=== PATIENT | female | born 1945 | race Caucasian/White ===

== ENCOUNTER 2017-06-29 14:13 | Emergency (ER) | payer MEDICARE, OTHER ==
[~2017-06-29] VITALS: Ht 162.6 cm; Wt 86.2 kg
[~2017-06-29 14:13] MED LIST: ASPI81EC PO; ATEN100 PO; ATEN50 PO; Ativan1 MG PO; CLARITIN5 MG PO; CYCL10 PO; FISH1000 PO; FLUT110OIA INH; HYDCHL25 PO; IBUP400 PO; IPRA.03NI; LEVSOD100 PO; LEVSOD50 PO; LOSA50 PO; MULVITMINF PO; OMEP20ER PO; OXYACE5T PO; POTA10T PO; POTA20PAC PO; QUET25 PO; UBID100 PO
[2017-06-29 14:37] LABS: BASOPHILS ABSOLUTE AUTO 0.06 K/mm3 (0.00-0.23); BASOPHILS PERCENT AUTO 1 % (0-2); EOSINOPHILS ABSOLUTE AUTO 0.09 K/mm3 (0.00-0.68); EOSINOPHILS PERCENT AUTO 1 % (0-6); Hematocrit 45.4 % (33.0-51.0); Hemoglobin 15.1 g/dL (11.5-16.0); IMMATURE GRAN ABSOLUTE AUTO 0.05 K/mm3 (0.00-0.10); IMMATURE GRAN PERCENT AUTO 1 % (0-1); LYMPHOCYTES ABSOLUTE AUTO 3.23 K/mm3 (0.84-5.20); LYMPHOCYTES PERCENT AUTO 39 % (21-46); MONOCYTES ABSOLUTE AUTO 1.01 K/mm3 (0.16-1.47); MONOCYTES PERCENT AUTO 12 % (4-13); Mean Corpuscular HGB 29.8 pg (26.0-34.0); Mean Corpuscular HGB Conc 33.3 g/dL (31.5-36.5); Mean Corpuscular Volume 90 fL (80-100); Mean Platelet Volume 10.3 fL (9.1-12.4); NEUTROPHILS PERCENT AUTO 46 % (41-73); Platelet Count 259 K/mm3 (150-400); RDW Standard Deviation 42.5 fL (35.1-46.3); Red Blood Cell Count 5.06 M/mm3 (3.80-5.20); White Blood Cell Count 8.24 K/mm3 (4.00-11.30)
[2017-06-29 14:57] LABS: Alanine Aminotransfer (ALT/SGP 48 U/L (12-78); Albumin, Blood 4.3 g/dL (3.4-5.0); Alk Phos 74 U/L (50-136); Anion Gap 12 mmol/L (6-16); Aspartate Aminotrans (AST/SGOT 38 U/L (12-37); Bilirubin, Total 0.6 mg/dL (0.1-1.0); Blood Urea Nitrogen 20 mg/dL (8-24); Bun/Creatinine Ratio 23.8 (12.0-20.0); CO2, Blood 24 mmol/L (21-32); Calcium, Blood 9.3 mg/dL (8.5-10.1); Chloride, Blood 103 mmol/L (98-108); Creatinine, Blood 0.84 mg/dL (0.40-1.00); Globulin, Blood 4.1 g/dL (2.2-4.0); Glomerular Filtration Rate >60 (60-); Glucose, Blood 177 mg/dL (70-99); Potassium, Blood 3.4 mmol/L (3.5-5.5); Sodium, Blood 139 mmol/L (136-145); Total Protein, Blood 8.4 g/dL (6.4-8.2); Troponin I <0.015 ng/mL (0.000-0.040)
== END 2017-06-29 18:00 | disposition home or self-care (01) ==
LOC: ER 14:13
PROVIDERS: Physician Assistant
DX: R07.89 Other chest pain (principal); F41.9 Anxiety disorder, unspecified; R25.2 Cramp and spasm; E87.6 Hypokalemia; R00.0 Tachycardia, unspecified; Z88.8 Allergy status to other drugs, medicaments and biological substances; Z88.2 Allergy status to sulfonamides; Z88.5 Allergy status to narcotic agent; Z79.899 Other long term (current) drug therapy; I10 Essential (primary) hypertension; E78.00 Pure hypercholesterolemia, unspecified; I50.9 Heart failure, unspecified
CPT/HCPCS: 36415; 71046; 80053; 84484; 85025; 93005; 93010; 96361; 96374; 99284; J2060; J7030

== ENCOUNTER 2018-10-20 08:24 | Day surgery (SDC) | payer MEDICARE, OTHER ==
[~2018-10-20] VITALS: Ht 162.6 cm; Wt 83.4 kg
[2018-10-20] MEDS ORDERED: Aspirin EC81 MG PO (09:29)
[2018-10-20] MEDS ORDERED: IBUP800 PO (09:30)
[2018-10-20] MEDS ORDERED: Lipitor80 MG PO (09:30)
[2018-10-20] MEDS ORDERED: Amaryl1 MG PO (09:32)
[2018-10-20] MEDS ORDERED: HYDR10 PO (09:33)
[2018-10-20] MEDS ORDERED: DULO60 PO (09:33)
[2018-10-20] MEDS ORDERED: Allopurinol100 MG PO (09:34)
--- NOTE | 2018-10-20 11:16 | NUR ---
10/20/18 1116 Nakia Stevenson AWAKE TAKING SIPS OF WATER, PUT HER TEETH, THEN MORE SLEEPY, NO VERBAL RESPONSE AND SHAKING OF BOTH ARMS, CBG DONE AT 102. INTERMITTENT GENERALIZED SHAKING OF BOTH ARMS AND LEFT FOOT. NO VERBAL RESPONSE. BEAR HUGGER APPLIED.
== END 2018-10-20 11:51 | disposition home or self-care (01) ==
LOC: ORSCSDS 08:24
PROVIDERS: Podiatrist Foot & Ankle Surgery
PROC: 0YBM0ZX Excision of Right Foot, Open Approach, Diagnostic (ICD-10-PCS; principal; 2018-10-20 10:15)
DX: M19.071 Primary osteoarthritis, right ankle and foot (principal); I10 Essential (primary) hypertension; E11.9 Type 2 diabetes mellitus without complications; E03.9 Hypothyroidism, unspecified; I25.2 Old myocardial infarction; I25.10 Atherosclerotic heart disease of native coronary artery without angina pectoris; Z87.891 Personal history of nicotine dependence; Z79.899 Other long term (current) drug therapy; Z79.82 Long term (current) use of aspirin
CPT/HCPCS: 82947; J0690; J2250; J2704; J3010; J7120

== ENCOUNTER 2020-06-23 11:06 | Inpatient (IN) | payer MEDICARE, OTHER ==
[~2020-06-23] VITALS: Ht 162.6 cm; Wt 86.4 kg
[~2020-06-23 11:06] MED LIST changes: -CELE100 PO
--- NOTE | 2020-06-23 17:45 | NUR ---
SHIFT SUMMARY PT A&OX4, VSS, NPO MIDNIGHT, CONNOR SMALL AMT CLEAR LIQUIDS, DENIES N&V AT THIS TIME, 20G IV LUE, IVF @ 75MLS/HR W/ ABX SCHEDULED, INDEPENDENT TO BRP, VOIDING WELL, SURGICAL CONSULT COMPLETE/ DR FONTANEZ PLAN FOR O.R. MID-AM TOMORROW, COVID TEST DONE. WILL REPORT TO ONCOMING NOC RN.
[2020-06-23 19:02] LABS: Influenza A, PCR NEGATIVE (NEGATIVE); Influenza B, PCR NEGATIVE (NEGATIVE); Resp Syncytial Virus, PCR NEGATIVE (NEGATIVE); SARS-Cov-2 (COVID-19) PCR, MMC NEGATIVE (NEGATIVE)
--- NOTE | 2020-06-24 04:36 | NUR ---
SHIFT SUMMARY: PT HAS BEEN NPO SINCE MIDNIGHT FOR SURGERY TODAY. PT C/O A CONSTANT PAIN TO RT SIDE OF ABD. PAIN BEING MANAGED WITH 1-2MG MORPHINE PER EMAR. DENIES N/V. IVF AND IV ABX INFUSING. PT INDEPENDENT IN ROOM. VOIDING WELL. PT CURRENTLY APPEARS TO BE RESTING.
[2020-06-24 05:27] LABS: BASOPHILS ABSOLUTE AUTO 0.03 K/mm3 (0.00-0.23); BASOPHILS PERCENT AUTO 0 % (0-2); EOSINOPHILS ABSOLUTE AUTO 0.08 K/mm3 (0.00-0.68); EOSINOPHILS PERCENT AUTO 1 % (0-6); Hematocrit 34.3 % (33.0-51.0); Hemoglobin 11.1 g/dL (11.5-16.0); IMMATURE GRAN ABSOLUTE AUTO 0.02 K/mm3 (0.00-0.10); IMMATURE GRAN PERCENT AUTO 0 % (0-1); LYMPHOCYTES ABSOLUTE AUTO 1.21 K/mm3 (0.84-5.20); LYMPHOCYTES PERCENT AUTO 16 % (21-46); MONOCYTES ABSOLUTE AUTO 1.28 K/mm3 (0.16-1.47); MONOCYTES PERCENT AUTO 17 % (4-13); Mean Corpuscular HGB 29.8 pg (26.0-34.0); Mean Corpuscular HGB Conc 32.4 g/dL (31.5-36.5); Mean Corpuscular Volume 92 fL (80-100); Mean Platelet Volume 10.1 fL (9.1-12.4); NEUTROPHILS ABSOLUTE AUTO 5.01 K/mm3 (1.96-9.15); NEUTROPHILS PERCENT AUTO 66 % (41-73); Platelet Count 175 K/mm3 (150-400); RDW Coefficient Variation 14.1 % (11.7-14.2); RDW Standard Deviation 46.9 fL (35.1-46.3); Red Blood Cell Count 3.73 M/mm3 (3.80-5.20); White Blood Cell Count 7.63 K/mm3 (4.00-11.30)
[2020-06-24 05:47] LABS: Alanine Aminotransfer (ALT/SGP 71 U/L (12-78); Albumin/Globulin Ratio 0.8 (0.8-1.8); Alk Phos 119 U/L (50-136); Anion Gap 4 mmol/L (6-16); Aspartate Aminotrans (AST/SGOT 113 U/L (12-37); Bilirubin, Total 1.4 mg/dL (0.1-1.0); Blood Urea Nitrogen 15 mg/dL (8-24); Bun/Creatinine Ratio 19.4 (12.0-20.0); CO2, Blood 29 mmol/L (21-32); Calcium, Blood 9.1 mg/dL (8.5-10.1); Chloride, Blood 102 mmol/L (98-108); Creatinine, Blood 0.77 mg/dL (0.40-1.00); Globulin, Blood 3.7 g/dL (2.2-4.0); Glomerular Filtration Rate >60 (60-); Glucose, Blood 193 mg/dL (70-99); Magnesium, Blood 2.1 mg/dL (1.6-2.4); Phosphorus, Blood 2.5 mg/dL (2.5-4.9); Potassium, Blood 3.7 mmol/L (3.5-5.5); Sodium, Blood 135 mmol/L (136-145); Total Protein, Blood 6.7 g/dL (6.4-8.2)
--- NOTE | 2020-06-24 14:43 | NUR ---
Patient up to Ambulate independently. Gait steady. Surgical site prepped with 2% Chlorhexidine cloth wipe. History, Chart, Medications and Allergies reviewed before start of procedure.Lungs clear T/O to Auscultation. Patient confirms NPO status and agrees with scheduled surgery. ALL BELONINGS EXCEPT GLASSES LEFT IN ROOM 222. REPORT FROM RICHARD MOORE.
--- NOTE | 2020-06-24 18:37 | NUR ---
SHIFT SUMMARY PT A&OX4, VSS, S/P HALLE HUNT([id number]), STERIS D/I. DENIES PAIN AT THIS TIME. DENIES N&V, CONNOR PO CLEAR LIQUID. IVF & ABX INFUSING PER EMAR. AWAITING POST OP VOID. STAND PIVOT FROM GURNEY TO BED. WILL REPORT TO ONCOMING NOC JAM.
--- NOTE | 2020-06-24 19:21 | NUR ---
ADMIT:06/23/20 DISCHARGE: DX: cholecystitis CC: judsonabamor MICHELLE CALL: RESIDENCE: home, with CAREGIVER: Scotta: CANDELARIA TYLER ([place]) DX: anemia, arthritis cervical, chronic pain, htn, anxiety, depression, see list DME: compression stockings CCM: referral 04/30/20 HOME HEALTH: no record SUMMARY: Admit 06/23/20 06/24/20 - Met with patient in her room, updated white board with my name and discussed care coordination. Told her I would follow up after surgery. Lap susie to be performed by DR Rick today Per Dr Anglin , ETA discharge Tuesday, states she may need respite care, she cares for her chronically ill at home. Not sure if she needs the care or needs the care. Will meet with patient in the morning. 1: Acute cholecystitis
[2020-06-25 04:29] LABS: BASOPHILS ABSOLUTE AUTO 0.02 K/mm3 (0.00-0.23); BASOPHILS PERCENT AUTO 0 % (0-2); EOSINOPHILS PERCENT AUTO 0 % (0-6); Hematocrit 30.5 % (33.0-51.0); Hemoglobin 9.8 g/dL (11.5-16.0); IMMATURE GRAN ABSOLUTE AUTO 0.03 K/mm3 (0.00-0.10); IMMATURE GRAN PERCENT AUTO 0 % (0-1); LYMPHOCYTES ABSOLUTE AUTO 0.56 K/mm3 (0.84-5.20); LYMPHOCYTES PERCENT AUTO 7 % (21-46); MONOCYTES ABSOLUTE AUTO 0.71 K/mm3 (0.16-1.47); MONOCYTES PERCENT AUTO 9 % (4-13); Mean Corpuscular HGB 29.4 pg (26.0-34.0); Mean Corpuscular HGB Conc 32.1 g/dL (31.5-36.5); Mean Corpuscular Volume 92 fL (80-100); Mean Platelet Volume 10.8 fL (9.1-12.4); NEUTROPHILS ABSOLUTE AUTO 6.71 K/mm3 (1.96-9.15); NEUTROPHILS PERCENT AUTO 84 % (41-73); Platelet Count 176 K/mm3 (150-400); RDW Coefficient Variation 13.7 % (11.7-14.2); RDW Standard Deviation 46.5 fL (35.1-46.3); Red Blood Cell Count 3.33 M/mm3 (3.80-5.20); White Blood Cell Count 8.03 K/mm3 (4.00-11.30)
[2020-06-25 04:47] LABS: Alanine Aminotransfer (ALT/SGP 129 U/L (12-78); Albumin, Blood 2.5 g/dL (3.4-5.0); Albumin/Globulin Ratio 0.7 (0.8-1.8); Alk Phos 145 U/L (50-136); Anion Gap 6 mmol/L (6-16); Aspartate Aminotrans (AST/SGOT 154 U/L (12-37); Bilirubin, Total 0.6 mg/dL (0.1-1.0); Blood Urea Nitrogen 16 mg/dL (8-24); Bun/Creatinine Ratio 16.9 (12.0-20.0); CO2, Blood 28 mmol/L (21-32); Calcium, Blood 8.5 mg/dL (8.5-10.1); Chloride, Blood 100 mmol/L (98-108); Creatinine, Blood 0.94 mg/dL (0.40-1.00); Globulin, Blood 3.5 g/dL (2.2-4.0); Glomerular Filtration Rate >60 (60-); Glucose, Blood 297 mg/dL (70-99); Potassium, Blood 4.4 mmol/L (3.5-5.5); Sodium, Blood 134 mmol/L (136-145)
--- NOTE | 2020-06-25 05:06 | NUR ---
SHIFT SUMMARY POD1 LAP MAGALIE, A/O X4, VSS, TOLERATING PO, VOIDING WELL, PAIN MANAGED PER EMAR, NO BM THIS SHIFT, NO ACUTE EVENTS THIS SHIFT. CALL LIGHT IN REACH, WILL CONTINUE TO MONITOR AND REPORT TO ONCOMING DAY RN.
[2020-06-25] MEDS ORDERED: CELE100 PO (08:59)
--- NOTE | 2020-06-25 14:35 | NUR ---
DISCHARGE PT PROVIDED WITH WRITTEN AND VERBAL DISCHARGE INSTRUCTIONS, SHE REPORTED UNDERSTANDING. QUESTIONS ANSWERED. PT SHORT OF BREATH WITH ACTIVITY, SHE REPORTS THIS IS BASELINE X3 MONTHS AND IS SEEING DR. BRINK REGARDING THIS CHANGE. PAIN MANAGED AT TIME OF DISCHARE. PT TOLERATING PO AND PAIN MANAGED WITH PO PAIN MEDICATION. PT ABLE TO AMBULATE INDEPEDENTLY. PT ESCORTED OUT IN W/C BY THIS RN AT APPROXIMATELY [id number].
--- NOTE | 2020-06-25 23:35 | NUR ---
ADMIT:06/23/20 DISCHARGE: 06/25/20 DX: cholecyctitis CC: cpeabody MICHELLE CALL: Met with Maddison prior to discharge,, call her at home for michelle, KRUPA for mid level follow up 1 week. RESIDENCE: home, with , and sister CAREGIVER: Scotta: CANDELARIA TYELR ([place]) DX: anemia, arthritis cervical, chronic pain, htn, anxiety, depression, see list DME: compression stockings, cane, front wheel walker, ramp CCM: referral 04/30/20 HOME HEALTH: 06/25 not recommended at discharge SUMMARY: Admit 06/23/20 06/25/20 Met with Maddison prior to discharge. She has a ride planned from her , her sister can pickling operator new meds at [facility], She is walking around the room on her own, only steri strip bandages that can fall off when ready. Discussed care coordination. She does not feel that she needs any addtional care at home at this time. Discussed michelle call from Irene on or Tuesday to schedule 1 week follow up with Gilberto So.
== END 2020-06-25 14:18 | disposition home or self-care (01) | DRG 419 ==
LOC: US 11:06 → SURS 13:19
PROVIDERS: Surgery; ADMIT Internal Medicine
PROC: BF532Z0 Other Imaging of Gallbladder and Bile Ducts using Fluorescing Agent, Intraoperative (ICD-10-PCS; 2020-06-24)
PROC: 0FT44ZZ Resection of Gallbladder, Percutaneous Endoscopic Approach (ICD-10-PCS; principal; 2020-06-24 14:30)
DX: K80.00 Calculus of gallbladder with acute cholecystitis without obstruction (principal); Z20.822 Contact with and (suspected) exposure to COVID-19; Z66 Do not resuscitate; I25.10 Atherosclerotic heart disease of native coronary artery without angina pectoris; I10 Essential (primary) hypertension; E11.9 Type 2 diabetes mellitus without complications; M10.9 Gout, unspecified; E03.9 Hypothyroidism, unspecified; K21.9 Gastro-esophageal reflux disease without esophagitis; K76.0 Fatty (change of) liver, not elsewhere classified; Z95.1 Presence of aortocoronary bypass graft; Z88.5 Allergy status to narcotic agent; Z88.8 Allergy status to other drugs, medicaments and biological substances; Z79.82 Long term (current) use of aspirin; Z79.899 Other long term (current) drug therapy
CPT/HCPCS: 0241U; 36415; 74300; 76705; 80053; 82947; 83690; 83735; 84100; 85025; 88304; 93005; 93010; 94760; A9270; C1729; C9113; J1100; J1885; J2250; J2270; J2310; J2370; J2405; J2543; J2704; J2710; J3010; J7042; J7120

== ENCOUNTER → 2020-06-23 | Outpatient (CLI) | payer MEDICARE, OTHER ==
[~2020-06-23] MED LIST changes: +Allopurinol100 MG PO; +Amaryl1 MG PO; +Aspirin EC81 MG PO; +CELE100 PO; +DULO60 PO; +HYDR10 PO; +IBUP800 PO; +Lipitor80 MG PO
[2020-06-23 10:47] LABS: BASOPHILS ABSOLUTE AUTO 0.04 K/mm3 (0.00-0.23); BASOPHILS PERCENT AUTO 0 % (0-2); EOSINOPHILS ABSOLUTE AUTO 0.02 K/mm3 (0.00-0.68); EOSINOPHILS PERCENT AUTO 0 % (0-6); Hematocrit 39.5 % (33.0-51.0); Hemoglobin 12.8 g/dL (11.5-16.0); IMMATURE GRAN ABSOLUTE AUTO 0.05 K/mm3 (0.00-0.10); IMMATURE GRAN PERCENT AUTO 0 % (0-1); LYMPHOCYTES ABSOLUTE AUTO 0.97 K/mm3 (0.84-5.20); LYMPHOCYTES PERCENT AUTO 8 % (21-46); MONOCYTES ABSOLUTE AUTO 1.33 K/mm3 (0.16-1.47); MONOCYTES PERCENT AUTO 11 % (4-13); Mean Corpuscular HGB 29.8 pg (26.0-34.0); Mean Corpuscular HGB Conc 32.4 g/dL (31.5-36.5); Mean Corpuscular Volume 92 fL (80-100); Mean Platelet Volume 10.3 fL (9.1-12.4); NEUTROPHILS ABSOLUTE AUTO 9.73 K/mm3 (1.96-9.15); NEUTROPHILS PERCENT AUTO 80 % (41-73); Platelet Count 212 K/mm3 (150-400); RDW Coefficient Variation 14.2 % (11.7-14.2); RDW Standard Deviation 47.7 fL (35.1-46.3); Red Blood Cell Count 4.29 M/mm3 (3.80-5.20); White Blood Cell Count 12.14 K/mm3 (4.00-11.30)
[2020-06-23 11:00] LABS: Albumin, Blood 3.6 g/dL (3.4-5.0); Albumin/Globulin Ratio 0.9 (0.8-1.8); Bilirubin, Total 1.1 mg/dL (0.1-1.0); Bun/Creatinine Ratio 21.1 (12.0-20.0); Calcium, Blood 9.3 mg/dL (8.5-10.1); Creatinine, Blood 0.95 mg/dL (0.40-1.00); Globulin, Blood 4.1 g/dL (2.2-4.0); Total Protein, Blood 7.7 g/dL (6.4-8.2)
== END | disposition home or self-care (01) ==
LOC: LAB SHORT 10:42 → LAB EV 10:42
PROVIDERS: Physician Assistant Medical
DX: R10.9 Unspecified abdominal pain (principal)
CPT/HCPCS: 80053; 83690; 85025

== ENCOUNTER → 2020-12-31 | Outpatient (CLI) | payer MEDICARE, OTHER ==
[~2020-12-31] MED LIST changes: +CELE100 PO
[2020-12-31 08:13] LABS: BASOPHILS ABSOLUTE AUTO 0.01 K/mm3 (0.00-0.23); BASOPHILS PERCENT AUTO 0 % (0-2); EOSINOPHILS ABSOLUTE AUTO 0.01 K/mm3 (0.00-0.68); EOSINOPHILS PERCENT AUTO 0 % (0-6); Hematocrit 37.6 % (33.0-51.0); Hemoglobin 12.5 g/dL (11.5-16.0); IMMATURE GRAN PERCENT AUTO 2 % (0-1); LYMPHOCYTES ABSOLUTE AUTO 1.01 K/mm3 (0.84-5.20); LYMPHOCYTES PERCENT AUTO 8 % (21-46); MONOCYTES ABSOLUTE AUTO 1.11 K/mm3 (0.16-1.47); MONOCYTES PERCENT AUTO 9 % (4-13); Mean Corpuscular HGB 28.7 pg (26.0-34.0); Mean Corpuscular HGB Conc 33.2 g/dL (31.5-36.5); Mean Corpuscular Volume 86 fL (80-100); Mean Platelet Volume 9.8 fL (9.1-12.4); NEUTROPHILS ABSOLUTE AUTO 10.31 K/mm3 (1.96-9.15); NEUTROPHILS PERCENT AUTO 81 % (41-73); Platelet Count 295 K/mm3 (150-400); RDW Coefficient Variation 13.4 % (11.7-14.2); RDW Standard Deviation 42.3 fL (35.1-46.3); Red Blood Cell Count 4.36 M/mm3 (3.80-5.20); White Blood Cell Count 12.65 K/mm3 (4.00-11.30)
[2020-12-31 08:28] LABS: Albumin, Blood 2.9 g/dL (3.4-5.0); Albumin/Globulin Ratio 0.7 (0.8-1.8); Bilirubin, Total 0.5 mg/dL (0.1-1.0); Bun/Creatinine Ratio 21.2 (12.0-20.0); Calcium, Blood 8.6 mg/dL (8.5-10.1); Creatinine, Blood 1.04 mg/dL (0.40-1.00); Globulin, Blood 4.2 g/dL (2.2-4.0); Magnesium, Blood 1.6 mg/dL (1.6-2.4); Potassium, Blood 3.3 mmol/L (3.5-5.5); Total Protein, Blood 7.1 g/dL (6.4-8.2)
== END | disposition home or self-care (01) ==
LOC: LAB SHORT 08:08
PROVIDERS: Physician Assistant
DX: R06.02 Shortness of breath (principal); R53.83 Other fatigue
CPT/HCPCS: 80053; 83735; 83880; 85025

== ENCOUNTER → 2021-01-22 | Outpatient (CLI) | payer MEDICARE, OTHER ==
[2021-01-22 08:12] LABS: BASOPHILS ABSOLUTE AUTO 0.04 K/mm3 (0.00-0.23); BASOPHILS PERCENT AUTO 1 % (0-2); EOSINOPHILS ABSOLUTE AUTO 0.31 K/mm3 (0.00-0.68); EOSINOPHILS PERCENT AUTO 5 % (0-6); Hematocrit 35.9 % (33.0-51.0); Hemoglobin 11.7 g/dL (11.5-16.0); IMMATURE GRAN ABSOLUTE AUTO 0.08 K/mm3 (0.00-0.10); IMMATURE GRAN PERCENT AUTO 1 % (0-1); LYMPHOCYTES ABSOLUTE AUTO 1.35 K/mm3 (0.84-5.20); LYMPHOCYTES PERCENT AUTO 21 % (21-46); MONOCYTES ABSOLUTE AUTO 0.75 K/mm3 (0.16-1.47); MONOCYTES PERCENT AUTO 12 % (4-13); Mean Corpuscular HGB 28.5 pg (26.0-34.0); Mean Corpuscular HGB Conc 32.6 g/dL (31.5-36.5); Mean Corpuscular Volume 88 fL (80-100); Mean Platelet Volume 10.7 fL (9.1-12.4); NEUTROPHILS ABSOLUTE AUTO 3.87 K/mm3 (1.96-9.15); NEUTROPHILS PERCENT AUTO 61 % (41-73); Platelet Count 181 K/mm3 (150-400); RDW Coefficient Variation 14.1 % (11.7-14.2)
[2021-01-22 08:21] LABS: Albumin, Blood 3.1 g/dL (3.4-5.0); Albumin/Globulin Ratio 0.7 (0.8-1.8); Bilirubin, Total 0.3 mg/dL (0.1-1.0); Bun/Creatinine Ratio 14.3 (12.0-20.0); Calcium, Blood 9.2 mg/dL (8.5-10.1); Creatinine, Blood 1.19 mg/dL (0.40-1.00); Globulin, Blood 4.4 g/dL (2.2-4.0); Potassium, Blood 4.4 mmol/L (3.5-5.5); Total Protein, Blood 7.5 g/dL (6.4-8.2)
== END | disposition home or self-care (01) ==
LOC: LAB SHORT 08:04 → LAB 08:04
PROVIDERS: Physician Assistant
DX: U07.1 COVID-19 (principal); J12.82 Pneumonia due to coronavirus disease 2019
CPT/HCPCS: 80053; 83880; 85025

== ENCOUNTER 2022-06-22 06:34 | Day surgery (SDC) | payer MEDICARE, OTHER ==
[~2022-06-22] VITALS: Ht 160 cm; Wt 90.5 kg
[~2022-06-22 06:34] MED LIST changes: +ALLO300 PO; -Allopurinol100 MG PO; +CLOP75 PO; +COREG6.25 MG PO; +MULVITA PO; +NITROGLYCERIN0.4 M1 SL; +PIOG30 PO; +PRAM.125 PO; +VALS80 PO; +VITAMIN D325 MC3 PO
--- NOTE | 2022-06-22 08:07 | NUR ---
PT BELONGINGS PLACED UNDERNEATH [facility] FOR SAFEKEEPING. PT GLASSES AND DENTURES REMOVED AND TAKEN TO PACU FOR SAFEKEEPING.
--- NOTE | 2022-06-22 11:33 | NUR ---
ARRIVAL TO SURGICAL FLOOR VIA HOSPITAL BED. ASSESSMENT CHARTED. STRUGGLING w/ PAIN MANAGEMENT & SLIGHT NAUSEA. WILL MEDICATE & PLANS MADE w/ PATIENT FOR PAIN MANAGEMENT.
--- NOTE | 2022-06-22 18:56 | NUR ---
SHIFT SUMMARY PT HAS DONE WELL POST OP. PAIN WELL CONTROLLED. EATING, DRINKING, VOIDING. WORKED w/ THERAPY.
[2022-06-23 05:00] LABS: BASOPHILS ABSOLUTE AUTO 0.02 K/mm3 (0.00-0.23); BASOPHILS PERCENT AUTO 0 % (0-2); EOSINOPHILS PERCENT AUTO 0 % (0-6); Hematocrit 29.6 % (33.0-51.0); Hemoglobin 9.6 g/dL (11.5-16.0); IMMATURE GRAN ABSOLUTE AUTO 0.05 K/mm3 (0.00-0.10); IMMATURE GRAN PERCENT AUTO 0 % (0-1); LYMPHOCYTES ABSOLUTE AUTO 1.46 K/mm3 (0.84-5.20); LYMPHOCYTES PERCENT AUTO 11 % (21-46); MONOCYTES ABSOLUTE AUTO 1.15 K/mm3 (0.16-1.47); MONOCYTES PERCENT AUTO 9 % (4-13); Mean Corpuscular HGB 30.5 pg (26.0-34.0); Mean Corpuscular HGB Conc 32.4 g/dL (31.5-36.5); Mean Corpuscular Volume 94 fL (80-100); Mean Platelet Volume 10.7 fL (9.1-12.4); NEUTROPHILS ABSOLUTE AUTO 10.86 K/mm3 (1.96-9.15); NEUTROPHILS PERCENT AUTO 80 % (41-73); Platelet Count 206 K/mm3 (150-400); RDW Coefficient Variation 13.9 % (11.7-14.2); RDW Standard Deviation 47.3 fL (35.1-46.3); Red Blood Cell Count 3.15 M/mm3 (3.80-5.20); White Blood Cell Count 13.54 K/mm3 (4.00-11.30)
--- NOTE | 2022-06-23 05:01 | NUR ---
SHIFT SUMMARY POD #1 L TKA PT IS UP IN HER CHAIR THIS AM, A&O X4, VSS, RA, SBA W/FWW, TOLERATING PO INTAKE, VOIDING WNL, DRSG REMAINS C/D/I, POLAR PACK IN PLACE, CIRC WNL, DENIES N/T, PAIN MNGD PER EMAR PRN. NO ACUTE CHANGES NOTED THROUGH THE NIGHT, CALL LIGHT IN REACH, WCTM & REPORT TO ONCOMING RN.
[2022-06-23 06:10] LABS: Bun/Creatinine Ratio 28.1 (12.0-20.0); Calcium, Blood 8.8 mg/dL (8.5-10.1); Creatinine, Blood 0.92 mg/dL (0.40-1.00); Potassium, Blood 4.5 mmol/L (3.5-5.5)
[2022-06-23] MEDS ORDERED: Percocet 5-3251 EACH PO (11:07)
--- NOTE | 2022-06-23 11:35 | NUR ---
DISCHARGE PT AND HER SPOUSE WERE PROVIDED WITH WRITTEN AND VERBAL DISCHARGE INSTRUCTIONS; THEY REPORTED UNDERSTANDING. PRESCRIPTION FOR PAIN MEDICATION PROVIDED BY DR. DIAZ. PT MET PT GOALS, VOIDING, EATING, AND PAIN MANAGED PRIOR TO DISCHARGE. PT ASSISTED OUT IN W/C BY KEV LEWIS NURSE.
--- NOTE | 2022-06-23 11:42 | NUR ---
CLARIFIED WITH MARTA ZUNIGA THAT PT'S SHOULD NOT CONTINUE ASA. PER MARTA PT SHOULD HOLD ASA FOR 3 WEEKS BUT CONTINUE PLAVIX AT THIS TIME. MESSAGE LEFT FOR PT REGARDING THIS MATTER.
== END 2022-06-23 11:35 | disposition home or self-care (01) ==
LOC: ORSCMMR 06:34 → ORD 08:15 → SURS 11:20 → ORSCMMR 06-23 11:35
PROVIDERS: Orthopaedic Surgery
PROC: 0SRD0JA Replacement of Left Knee Joint with Synthetic Substitute, Uncemented, Open Approach (ICD-10-PCS; principal; 2022-06-22 08:15)
PROC: 8E0Y0CZ Robotic Assisted Procedure of Lower Extremity, Open Approach (ICD-10-PCS; principal; 2022-06-22 08:15)
DX: M17.12 Unilateral primary osteoarthritis, left knee (principal); I10 Essential (primary) hypertension; E11.9 Type 2 diabetes mellitus without complications; E03.9 Hypothyroidism, unspecified; Z79.02 Long term (current) use of antithrombotics/antiplatelets; I25.10 Atherosclerotic heart disease of native coronary artery without angina pectoris; Z79.899 Other long term (current) drug therapy; I48.91 Unspecified atrial fibrillation; E66.9 Obesity, unspecified; Z68.35 Body mass index [BMI] 35.0-35.9, adult
CPT/HCPCS: 27447; 20985; S2900; 36415; 73560-LT; 80048; 82947; 85025; 97110; 97116; 97162; 97530; A9270; C1776; J0171; J0690; J1100; J1815; J1885; J2270; J2370; J2405; J2704; J2795; J3010; J3370; J7120

== ENCOUNTER → 2022-11-24 | Outpatient (CLI) | payer MEDICARE, OTHER ==
[~2022-11-24] MED LIST changes: +Percocet 5-3251 EACH PO
[2022-11-24 14:22] LABS: BASOPHILS ABSOLUTE AUTO 0.06 K/mm3 (0.00-0.23); BASOPHILS PERCENT AUTO 1 % (0-2); EOSINOPHILS ABSOLUTE AUTO 0.22 K/mm3 (0.00-0.68); EOSINOPHILS PERCENT AUTO 3 % (0-6); Hematocrit 39.6 % (33.0-51.0); Hemoglobin 12.6 g/dL (11.5-16.0); IMMATURE GRAN ABSOLUTE AUTO 0.04 K/mm3 (0.00-0.10); IMMATURE GRAN PERCENT AUTO 1 % (0-1); LYMPHOCYTES ABSOLUTE AUTO 2.16 K/mm3 (0.84-5.20); LYMPHOCYTES PERCENT AUTO 30 % (21-46); MONOCYTES ABSOLUTE AUTO 0.78 K/mm3 (0.16-1.47); MONOCYTES PERCENT AUTO 11 % (4-13); Mean Corpuscular HGB 28.4 pg (26.0-34.0); Mean Corpuscular HGB Conc 31.8 g/dL (31.5-36.5); Mean Corpuscular Volume 89 fL (80-100); NEUTROPHILS PERCENT AUTO 55 % (41-73); RDW Standard Deviation 49.1 fL (35.1-46.3); Red Blood Cell Count 4.44 M/mm3 (3.80-5.20); White Blood Cell Count 7.26 K/mm3 (4.00-11.30)
[2022-11-24 14:48] LABS: Mean Platelet Volume 11.5 fL (9.1-12.4); Platelet Count 233 K/mm3 (150-400)
[2022-11-24 18:10] LABS: Very Low Density Lipoprot Chol 33 mg/dL (6-32)
[2022-11-24 18:20] LABS: Alanine Aminotransfer (ALT/SGP 41 U/L (12-78); Albumin, Blood 3.9 g/dL (3.4-5.0); Albumin/Globulin Ratio 1.1 (0.8-1.8); Alk Phos 151 U/L (50-136); Anion Gap 9 mmol/L (6-16); Aspartate Aminotrans (AST/SGOT 33 U/L (12-37); Bilirubin, Total 0.5 mg/dL (0.1-1.0); Blood Urea Nitrogen 23 mg/dL (8-24); Bun/Creatinine Ratio 25.8 (12.0-20.0); CHOL/HDL RATIO 2.7; CO2, Blood 27 mmol/L (21-32); Calcium, Blood 9.7 mg/dL (8.5-10.1); Chloride, Blood 101 mmol/L (98-108); Cholesterol 147 mg/dL (50-200); Creatinine, Blood 0.89 mg/dL (0.40-1.00); Globulin, Blood 3.7 g/dL (2.2-4.0); Glomerular Filtration Rate 66 (60-); Glucose, Blood 177 mg/dL (70-99); HDL Cholesterol 55 mg/dL (>39); LDL/HDL RATIO 1.1; Low Density Lipoprotein Chol 59 mg/dL (0-110); Potassium, Blood 3.8 mmol/L (3.5-5.5); Sodium, Blood 137 mmol/L (136-145); Total Protein, Blood 7.6 g/dL (6.4-8.2); Triglycerides 167 mg/dL (30-160)
== END ==
LOC: LAB 09:15 → LAB SHORT 09:15
PROVIDERS: Family Medicine
DX: Z11.59 Encounter for screening for other viral diseases (principal); I10 Essential (primary) hypertension; E03.9 Hypothyroidism, unspecified
CPT/HCPCS: 80053; 80061; 84443; 85025; 86803

== ENCOUNTER → 2023-05-23 | Outpatient (CLI) | payer MEDICARE, OTHER | LOC: LAB SHORT 15:55 → LAB 15:55 | DX: R30.0 Dysuria (principal) | CPT/HCPCS: 87086 ==

== ENCOUNTER 2024-11-11 14:25 | Emergency (ER) | payer MEDICARE, OTHER ==
[~2024-11-11] VITALS: Ht 160 cm; Wt 81.7 kg
[2024-11-11 15:03] LABS: BASOPHILS ABSOLUTE AUTO 0.05 K/mm3 (0.00-0.23); BASOPHILS PERCENT AUTO 1 % (0-2); EOSINOPHILS ABSOLUTE AUTO 0.14 K/mm3 (0.00-0.68); EOSINOPHILS PERCENT AUTO 1 % (0-6); Hematocrit 30.4 % (33.0-51.0); Hemoglobin 9.9 g/dL (11.5-16.0); IMMATURE GRAN ABSOLUTE AUTO 0.08 K/mm3 (0.00-0.10); IMMATURE GRAN PERCENT AUTO 1 % (0-1); LYMPHOCYTES ABSOLUTE AUTO 2.17 K/mm3 (0.84-5.20); LYMPHOCYTES PERCENT AUTO 20 % (21-46); MONOCYTES ABSOLUTE AUTO 0.88 K/mm3 (0.16-1.47); MONOCYTES PERCENT AUTO 8 % (4-13); Mean Corpuscular HGB Conc 32.6 g/dL (31.5-36.5); Mean Corpuscular Volume 95 fL (80-100); NEUTROPHILS ABSOLUTE AUTO 7.62 K/mm3 (1.96-9.15); NEUTROPHILS PERCENT AUTO 70 % (41-73); NRBC ABSOLUTE 0.00 K/mm3 (0.00-0.02); NRBC Auto 0.0 /100 WBC (0.0-0.2); Platelet Count 235 K/mm3 (150-400); RDW Coefficient Variation 13.2 % (11.7-14.2); RDW Standard Deviation 45.7 fL (35.1-46.3)
[2024-11-11 15:20] LABS: Alanine Aminotransfer (ALT/SGP 24.0 U/L (12-78); Albumin, Blood 3.3 g/dL (3.4-5.0); Albumin/Globulin Ratio 1.1 (0.8-1.8); Anion Gap 10.0 mmol/L (3-11); Aspartate Aminotrans (AST/SGOT 28.0 U/L (12-37); Bilirubin, Total 0.6 mg/dL (0.1-1.0); Blood Urea Nitrogen 17.0 mg/dL (8-24); CO2, Blood 25.0 mmol/L (21-32); Calcium, Blood 8.6 mg/dL (8.5-10.1); Chloride, Blood 106.0 mmol/L (98-108); Creatinine, Blood 1.07 mg/dL (0.40-1.00); Globulin, Blood 3.1 g/dL (2.2-4.0); Glucose, Blood 219.0 mg/dL (70-99); Potassium, Blood 4.3 mmol/L (3.5-5.5); Sodium, Blood 137.0 mmol/L (136-145); Total Protein, Blood 6.4 g/dL (6.4-8.2)
[2024-11-11] MEDS ORDERED: Oxymetazoline 0.05% Nasal Relief Spray 15mL BTL ONE (15:45)
[2024-11-11 16:00] VITALS: BP 134/50
== END 2024-11-11 16:37 | disposition home or self-care (01) ==
LOC: ER 14:25
PROVIDERS: Emergency Medicine
DX: R04.0 Epistaxis (principal); Z79.02 Long term (current) use of antithrombotics/antiplatelets; Z95.1 Presence of aortocoronary bypass graft
CPT/HCPCS: 80053; 85025; A9270; J7120

== ENCOUNTER → 2025-01-25 | Outpatient (CLI) | payer MEDICARE, OTHER ==
[2025-01-25 13:39] LABS: BASOPHILS ABSOLUTE AUTO 0.05 K/mm3 (0.00-0.23); BASOPHILS PERCENT AUTO 1 % (0-2); EOSINOPHILS ABSOLUTE AUTO 0.19 K/mm3 (0.00-0.68); EOSINOPHILS PERCENT AUTO 3 % (0-6); Hematocrit 37.6 % (33.0-51.0); Hemoglobin 13.1 g/dL (11.5-16.0); IMMATURE GRAN ABSOLUTE AUTO 0.03 K/mm3 (0.00-0.10); IMMATURE GRAN PERCENT AUTO 1 % (0-1); LYMPHOCYTES ABSOLUTE AUTO 1.97 K/mm3 (0.84-5.20); LYMPHOCYTES PERCENT AUTO 32 % (21-46); MONOCYTES ABSOLUTE AUTO 0.59 K/mm3 (0.16-1.47); MONOCYTES PERCENT AUTO 10 % (4-13); Mean Corpuscular HGB Conc 34.8 g/dL (31.5-36.5); Mean Corpuscular Volume 93 fL (80-100); NEUTROPHILS ABSOLUTE AUTO 3.36 K/mm3 (1.96-9.15); NEUTROPHILS PERCENT AUTO 54 % (41-73); NRBC ABSOLUTE 0.00 K/mm3 (0.00-0.02); NRBC Auto 0.0 /100 WBC (0.0-0.2); Platelet Count 193 K/mm3 (150-400); RDW Coefficient Variation 13.2 % (11.7-14.2); RDW Standard Deviation 45.1 fL (35.1-46.3)
[2025-01-25 14:04] LABS: Thyroid Stimulating Hormone 2.151 uIU/mL (0.360-4.800)
[2025-01-25 17:44] LABS: Total Iron Binding Capacity 590.0 ug/dL (250-450)
== END ==
LOC: LAB SHORT 11:53 → LAB 11:53
PROVIDERS: Family Medicine
DX: D62 Acute posthemorrhagic anemia (principal); R04.0 Epistaxis; R53.83 Other fatigue
CPT/HCPCS: 36415; 83540; 83550; 84439; 84443; 85025